=== PATIENT | female | born 1960 | race African-American/Black ===

== ENCOUNTER 2016-06-07 13:05 | Emergency (ER) | payer BC ==
[~2016-06-07 13:05] MED LIST: MAXZIDE PO; PRILO PO; TEKTURNA300 MG PO; [UNRECOGNIZED DRUG - CODE] PO
[2016-06-07 14:21] LABS: BASOPHILS 0.1 %; BASOPHILS ABSOLUTE 0.01 10/3/uL (0.0-0.16); EOSINOPHILS 1.7 %; EOSINOPHILS ABSOLUTE 0.17 10/3/uL (0.0-0.53); ER CBC TAT 0 Hrs 07 Mins; IMMATURE GRANULOCYTES 0.4 %; IMMATURE GRANULOCYTES ABSOLUTE 0.04 10/3/uL (0.0-0.11); LYMPHOCYTES 18.6 %; LYMPHOCYTES ABSOLUTE 1.87 10/3/uL (0.67-4.30); MEAN PLATELET VOLUME 9.5 fL (9.2-13.0); MONOCYTES 8.4 %; MONOCYTES ABSOLUTE 0.85 10/3/uL (0.21-1.20); NEUTROPHILS 70.8 %; NEUTROPHILS ABSOLUTE 7.13 10/3/uL (2.02-8.40); PLATELET COUNT 272 10/3/uL (150-400); RBC DISTRIBUTION WIDTH 16.1 % (12.0-16.0); RED CELL COUNT 5.52 10/6/uL (4.0-5.6); WHITE BLOOD CELLS 10.1 10/3/uL (4.5-10.5)
[2016-06-07 14:22] LABS: HEMATOCRIT 43.1 % (36.0-48.0); HEMOGLOBIN 14.6 g/dL (12.0-16.0); MANUAL DIFF NO %; MEAN CORPUS HGB CONC 33.9 g/dL (32.0-36.0); MEAN CORPUSCULAR HEMOGLOB 26.4 pg (26.0-34.0); MEAN CORPUSCULAR VOLUME 78.1 fL (80-100)
[2016-06-07 14:31] LABS: ASCORBIC ACID (UR NOT ORDER) NEG (NEG); BILIRUBIN, URINE NEGATIVE (NEG); ER URINALYSIS TAT 0 Hrs 23 Mins; KETONE, URINE NEGATIVE (NEG); LEUKOCYTE ESTERASE(NOT OR NEG (NEG); NITRITE (URINE) NEG (NEG); WBC (NOT ORDERED) (RFLEX) 1 (0-5)
[2016-06-07 14:36] LABS: A/G RATIO 0.7 (0.7-1.9); ALBUMIN 3.6 G/DL (3.5-5.0); ALKALINE PHOSPHATASE 164 U/L (45-117); BUN (BLOOD UREA NITROGEN) 11 MG/DL (6-23); CALCIUM, SERUM 9.3 MG/DL (8.5-10.4); CHLORIDE, SERUM 102 MMOL/L (96-112); CO2 (CARBON DIOXIDE) 29 MMOL/L (24-34); CREATININE 1.15 MG/DL (0.55-1.02); GFR AFRICAN AMERICAN 61 ML/MIN (>=60); GFR NON AFRICAN AMERICAN 53 ML/MIN (>=60); GLOBULIN 5.2 G/DL (2.5-4.1); GLUCOSE, SERUM 111 MG/DL (60-99); POTASSIUM, SERUM 3.7 MMOL/L (3.5-5.3); SGOT(AST) 13 U/L (5-40); SGPT(ALT) 17 U/L (5-65); SODIUM, SERUM 138 MMOL/L (135-148); TOTAL BILIRUBIN 0.4 MG/DL (0-1.2); TOTAL PROTEIN 8.8 G/DL (6.0-8.5)
[2016-12-09] MEDS ORDERED: COREG3 PO (09:43)
[2016-12-09] MEDS ORDERED: MAXZIDE PO (09:44)
== END 2016-06-07 16:44 | disposition home or self-care (01) ==
LOC: ER 13:05
PROVIDERS: Hospitalist
DX: R10.9 Unspecified abdominal pain (principal); Z90.710 Acquired absence of both cervix and uterus; Z79.899 Other long term (current) drug therapy
CPT/HCPCS: 80053; 81001; 83690; 85025; 99284; A9270-GY

== ENCOUNTER 2016-06-09 21:41 | Inpatient (IN) | payer BC ==
--- NOTE | ~2016-06-09 | DS ---
Discharge Summary [address] [place]. [address] NAME: LILLIAN SALCEDO : 56 STATUS : DIS IN PAT#: [id number] AGE: 55 ADM/REG DATE : 06/09/16 MR#: [id number] REPORT SERV DATE: 06/19/16 DICTATED BY: OPAL HALEY DATE: 06/19/16 REPORT STATUS : Draft TRANSCRIBED BY: MODL DATE: 06/19/16 ADMISSION DATE: 06/09/2016 DISCHARGE DATE: 06/19/2016 For details of history of present illness, please refer to the history of present illness dictated by Dr. Garvey on 06/09/2016. Also refer to interim discharge summary dictated by nurse practitioner, Arianne Yates, on 06/15/2016. The patient was seen by hospitalist team. She was seen by Dr. Garvey on admission 06/09/2016. Afterwards, she was seen by Dr. Palmer and nurse practitioner, Arianne Yates, until 06/15/2016. Starting 06/15/2016, she was seen by Dr. Jorge until 06/17/2016. I personally saw this patient on the last two days, on 06/18/2016 and 06/19/2016 on the discharge day. DISCHARGE DIAGNOSES: 1. Status post small bowel obstruction, status post exploratory laparotomy and appendectomy, as well as lysis of abdominal wall and pelvic adhesions, status post gastrostomy tube placement. 2. Incidental appendectomy. 3. Hypertension controlled. 4. Morbid obesity. 5. History of gastric bypass surgery in the past. SURGEON: Tye Markham M.D. DIAGNOSTIC STUDIES: CT scan done on 06/09/2016 showed moderate severity partial small bowel obstruction pattern with dilated small bowel up to 4.2 cm and scattered air-fluid levels with transition to normal caliber mid to distal ilium, although the transitional zone is not discretely identified. Status post gastric bypass procedure, cholecystectomy and hysterectomy in the past, basilar atelectasis, mild diverticulosis, no diverticulitis pattern. HISTORY OF PRESENT ILLNESS: Briefly, this patient was admitted by my colleague, Dr. Garvey, 06/09/2016 with abdominal pain, intractable nausea and vomiting. For details, see history of present illness dictated by him on 06/09/2016. For the hospital course, please see note done by Dr. Palmer and the interim discharge summary dictated by nurse practitioner, Arianne Yates, as well as afterwards notes of Dr. Jorge. For the last two days when I saw the patient, the patient was improving. She did not have any problems with eating her diet as well as she was ambulating and having bowel movements. Dr. Markham was following the patient on a daily basis and today, he recommended the patient to be discharged home. She was very comfortable with the G-tube care and he recommended the patient to follow up with him in a week to check on her G-tube. Discharge Summary [address] [place]. [address] NAME: LILLIAN SALCEDO : 56 STATUS : DIS IN PAT#: [id number] AGE: 55 ADM/REG DATE : 06/09/16 MR#: [id number] REPORT SERV DATE: 06/19/16 DICTATED BY: OPAL HALEY DATE: 06/19/16 REPORT STATUS : Draft TRANSCRIBED BY: BLAINE DATE: 06/19/16 Regarding the patient's hypertension, the patient's blood pressure was initially elevated. She was on IV hydralazine because of acute renal failure, which was present in the beginning of admission. The patient's Tekturna and Maxzide were discontinued, and the patient was given intravenous hydralazine. The patient's kidney function is normalized for the last five to six days, and Tekturna is still on hold. We recommended the patient to stop her Tekturna and Maxzide, and the patient was started on hydralazine 25 mg p.o. twice a day and her blood pressure normalized, as well as she was recommended to continue her home isradipine at a dose of 5 mg a day as she takes at home. The patient was recommended to follow up with her primary care provider, Eleanor De Jesus, next week, and she can recheck her kidney function again and she can switch to her home medication regimen with Tekturna if necessary, but I would like to mention that the patient's creatinine was very stable, for example, on 06/15/2016 was 1.15, on 06/16/2016 was 0.97, on 06/18/2016 was 0.85, and on 06/19/2016 today was 0.9. Also, the patient was recommended to take Protonix or over-the- counter omeprazole at 40 mg a day. The patient to stop Maxzide. The patient to stop Tekturna. Continue her Ambien CR at 12.5 as needed for insomnia at bedtime, Tegretol 400 mg daily p.r.n. for jaw pain. The patient was discharged in stable condition. She has a followup appointment with Dr. Markham on 06/26/2016 at 0815 hours and she will follow up with Dr. De Jesus for blood pressure check. I spent 45 minutes on discharge. MG/MODL Opal Haley M.D. / [id number] CC: Genesis Mujica M.D.
--- NOTE | ~2016-06-09 | CN ---
Consultation Report [facility] [address] [place]. [address] NAME: LILLIAN SALCEDO : 56 STATUS : ADM IN [facility]#: [id number] AGE: 55 ADM/REG DATE : 06/09/16 MR#: [id number] REPORT SERV DATE: 06/11/16 DICTATED BY: TYE GODWIN DATE: 06/11/16 REPORT STATUS : Draft TRANSCRIBED BY: MODL DATE: 06/11/16 SURGICAL CONSULTATION DATE OF CONSULTATION: REASON FOR CONSULTATION: Bowel obstruction. HISTORY OF PRESENT ILLNESS: This 55-year-old female was admitted on 06/09/2016. She was presenting to the emergency department after being seen two days prior. She was noted to have left lower quadrant pain and felt to have diverticulitis and discharged home with oral medications. She had progressive abdominal pain and on the day of admission, was noted to have abdominal distention with intractable nausea and vomiting, and she could not keep down her medications. She was admitted and given IV fluids. Her creatinine remains elevated, consistent with dehydration. She had a CT scan that revealed a small-bowel obstruction. The patient states she did not have an NG tube until the day after Gastroenterology consult. She has minimal abdominal pain on exam at this time in the mid abdomen. There is a well- healed upper midline scar from her previous gastric bypass and cholecystectomy approximately 10 years ago. She has also had a hysterectomy with a Pfannenstiel incision. There is no evidence of any hernia. There is no guarding, rebound, or peritoneal signs on exam. The patient has NG tube placed with some bilious drainage, there is no blood in the drainage. The patient denies any hematemesis, coffee-grounds emesis, change in bowel or bladder habits, change in the caliber of her stools, bright red blood per rectum, or melena. She has had relief of the nausea and vomiting with NG tube decompression. She has no previous history of abdominal symptoms like this in the past. She denies any recent travel or ill family members. She has no well water exposure. PAST MEDICAL HISTORY: Hypertension and history of diverticulitis. PAST SURGICAL HISTORY: As above. SOCIAL HISTORY: The patient is . She denies tobacco or illicit drug usage. She uses alcohol socially. ALLERGIES: NO KNOWN DRUG OR LATEX ALLERGIES. MEDICATIONS: Please see hospital chart. FAMILY HISTORY: Negative for colon cancer or polyps. REVIEW OF SYSTEMS: No headache, blurred vision, dizziness, chest pain, shortness of breath, cough, dyspnea on exertion, syncope, palpitations, jaundice, itching, bright red blood per rectum, or melena. LABORATORY DATA: White blood cell count today is 7.1, H and H 13.2 and 39. Her creatinine Consultation Report [address] [place]. [address] NAME: LILLIAN SALCEDO : 56 STATUS : ADM IN [facility]#: [id number] AGE: 55 ADM/REG DATE : 06/09/16 MR#: [id number] REPORT SERV DATE: 06/11/16 DICTATED BY: TYE GODWIN DATE: 06/11/16 REPORT STATUS : Draft TRANSCRIBED BY: BLAINE DATE: 06/11/16 is elevated at 1.51, potassium is 4.5. Imaging obtained on 06/09: CT scan reveals moderate severity partial small-bowel obstruction pattern, up to 4.2 cm in diameter with scattered air-fluid levels with a transition to normal caliber in the mid to distal ileum, although the transition zone was not discretely identified. There was also atelectasis. There was no evidence of any free air, and mild diverticulosis of the descending and proximal sigmoid colon without diverticulitis. She has KUBs pending after NG tube placement. ASSESSMENT: 1. Partial small-bowel obstruction. 2. Resolving nausea and vomiting after NG tube decompression. 3. Hypertension. 4. Dehydration with elevated creatinine. PLAN: We will review the patient's IV supplementation and review the CT with Radiology after repeat imaging is done with NG tube decompression. There is no acute indication for surgical intervention at this time on the abdominal exam. In addition, the patient has no evidence of any tachycardia, fever, or elevated white blood cell count. We will consider Gastrografin small-bowel follow-through in a.m. after review of images. The patient was informed that if she is to have any signs of incarceration or strangulation or complications such as perforation or bleeding that surgery would be indicated. We will continue conservative therapy including IV fluids, NG tube decompression, serial physical exam and imaging for 48 hours if there are no complications before considering surgical intervention at this time. WALTER/BLAINE Tye Godwin M.D. / [id number] CC: Genesis Mcintosh M.D.
--- NOTE | ~2016-06-09 | HP ---
History And Physical [address] [facility] [place]. [address] NAME: LILLIAN SALCEDO : 56 STATUS : ADM IN [facility]#: [id number] AGE: 55 ADM/REG DATE : 06/09/16 MR#: [id number] REPORT SERV DATE: 06/10/16 DICTATED BY: JEFFERY PORTILLO DATE: 06/10/16 REPORT STATUS : Draft TRANSCRIBED BY: MODL DATE: 06/10/16 DATE OF ADMISSION: 06/09/2016 CHIEF COMPLAINT: Abdominal pain, intractable nausea and vomiting. HISTORY OF PRESENT ILLNESS: This is a 55-year-old lady with a history of diverticulitis in the past, essential hypertension, history of hiatal hernia, history of hysterectomy, cholecystectomy, and gastric bypass surgeries in the past, who presented to the emergency room at [facility] with the above-mentioned complaints a few days. She was seen in the ER, evaluated, and discharged home on oral medication, but her symptoms actually continued to get worse and she decided to come back to the emergency room to be evaluated. In the emergency room today, she had a CT scan of her abdomen and pelvis performed, which showed moderately severe partial small bowel obstruction in the distally ileum. She also had intractable nausea and vomiting here in the ER requiring intravenous Zofran and Phenergan, and had to have intravenous hydration due to the ongoing symptoms of nausea and vomiting. Hospitalist Service is asked to admit her for further evaluation and treatment. At the time of my evaluation, Ms. Aisha Glaser did not have any chest pain, palpitations, or orthopnea. She had no cough, hemoptysis, night sweats, or weight loss. She denied any recent fevers or chills. She did have nausea and vomiting as mentioned above, which is ongoing. She says the emesis is basically bilious. No history of recent hematemesis, hematochezia, or hematuria. No other history of recent travel or exposures other than those mentioned above. PAST MEDICAL HISTORY: Significant for history of essential hypertension, history of diverticulitis in the past. She has history of hiatal hernia and gastric bypass surgery as well. SOCIAL HISTORY: She denies alcohol use, tobacco use, or recreational drug use. FAMILY HISTORY: Noncontributory. MEDICATIONS: Her medications at home were reviewed by me in the chart today and reordered by me. REVIEW OF SYSTEMS: As in history of present illness. All other systems reviewed in detail and are quite unremarkable. PHYSICAL EXAMINATION: GENERAL: This is a pleasant 55-year-old, not in any acute distress. HEENT: Head is atraumatic, normocephalic. She is alert, awake, oriented to time, place, and person. Her pupils are equal, reacting to light and accommodating. External ocular muscles are intact. Membranes are moist and pink. Sclerae are nonicteric. History And Physical [address] [address] NAME: LILLIAN SALCEDO : 56 STATUS : ADM IN [facility]#: [id number] AGE: 55 ADM/REG DATE : 06/09/16 MR#: [id number] REPORT SERV DATE: 06/10/16 DICTATED BY: JEFFERY PORTILLO DATE: 06/10/16 REPORT STATUS : Draft TRANSCRIBED BY: MODL DATE: 06/10/16 NECK: Supple with no jugular venous distention, lymphadenopathy, or thyromegaly. LUNGS: Clear to auscultation with no wheezes, rubs, or crackles. HEART: Heart sounds were regular with no murmurs, rubs, or gallops. ABDOMEN: Soft. There is some tenderness in the right upper quadrant, otherwise without any guarding or rigidity. Bowel sounds are present. EXTREMITIES: Showed no cyanosis, clubbing, or edema. NEUROLOGIC: Grossly intact. No focal sensory or motor deficits. Higher functions appeared intact. She was able to move all four extremities. VITAL SIGNS: Her vital signs today showed a temperature of 98.5, pulse 87, respirations 16 a minute, blood pressure was 142/90, oxygen saturations were 98% breathing 2 L of oxygen via nasal cannula. LABORATORY DATA: Reviewed on the Eqvilibria system showed a sodium of 136, potassium 3.8, chloride 95, and CO2 of 32. BUN was 17 with a creatinine of 1.54, which is slightly up from her baseline of 1.1. Glucose was 126 today. Her alkaline phosphatase was 154. ALT and AST were within normal limits and lipase was 105. CBC showed a normal white blood cell count and normal hemoglobin, hematocrit, and platelet count. Her MCV was 77.4. Urinalysis showed no gross abnormality. This was done on 06/07/2016. Films of the CT scan of the abdomen and pelvis done today were reviewed by me on the PACS today and official radiology comments were also reviewed. There is moderately severe partial small bowel obstruction of the distal ileum. Please see report for details. EKG showed normal sinus rhythm at a rate of [address]-T changes. IMPRESSION: 1. Abdominal pain. 2. Intractable nausea and vomiting. 3. Moderately severe partial small bowel obstruction. 4. Essential hypertension. 5. History of diverticulitis. 6. Hiatal hernia. PLAN: We will admit Ms. Aisha Glaser to the [facility] surgery telemetry unit. Monitor her closely. We will keep her n.p.o. for bowel rest, provide her intravenous Zofran and Phenergan for symptoms of nausea and vomiting. We will start her on IV fluids for volume replacement, establish pain control with Dilaudid as well. We will go ahead and consult Dr. Boo in the morning to see, evaluate her, and offer recommendations. Meanwhile, she will be placed on unfractionated heparin for DVT prophylaxis while here. I have discussed the above plans with the patient and her . Questions were answered and they are agreeable to the above recommendations. Hospitalist Service will be following her during her stay. /BLAINE Jeffery Portillo M.D. History And Physical [address] [address] NAME: LILLIAN SALCEDO CAROLYN : 56 STATUS : ADM IN [facility]#: [id number] AGE: 55 ADM/REG DATE : 06/09/16 MR#: [id number] REPORT SERV DATE: 06/10/16 DICTATED BY: JEFFERY PORTILLO DATE: 06/10/16 REPORT STATUS : Draft TRANSCRIBED BY: BLAINE DATE: 06/10/16 / [id number] CC: Genesis Hawkins M.D.
--- NOTE | ~2016-06-09 | CN ---
Consultation Report [facility] [address] [place]. [address] NAME: LILLIAN SALCEDO : 56 STATUS : ADM IN [facility]#: [id number] AGE: 55 ADM/REG DATE : 06/09/16 MR#: [id number] REPORT SERV DATE: 06/10/16 DICTATED BY: YANNICK LAUGHLIN DATE: 06/10/16 REPORT STATUS : Draft TRANSCRIBED BY: MODL DATE: 06/10/16 GI CONSULTATION DATE OF CONSULTATION: 06/10/2016 REASON FOR CONSULTATION: Evaluation and management of partial small-bowel obstruction. HISTORY OF PRESENT ILLNESS: Ms. Aisha Glaser is a 55-year-old female patient, known to Dr. Armani Boo in the outpatient setting, who presented to [facility] on 06/09 with a chief complaint of abdominal pain, intractable nausea with vomiting. She has a history of a gastric bypass in what she states was 1996, who had presented to [facility] on 06/07 with the similar complaints and was sent home with antiemetics. She returned on 06/09 secondary to intractable nausea and vomiting, stating that she has not eaten anything in four to five days. CT scan of the abdomen and pelvis showed moderate severity partial small-bowel obstruction pattern with dilated small bowel up to 4.2 cm and scattered air-fluid levels, thus prompting her admission. She has been n.p.o. She has not had an NG tube placed. She states that right now, her nausea and vomiting have resolved. She is not passing much flatus. She states she has not had a bowel movement since 06/04. She tells me she has never had a bowel obstruction before. She is uncomfortable and complains of abdominal pain on the left side with no rebound, no guarding, no peritoneal signs being elicited on exam. She denies any associated hematemesis or coffee-ground emesis. She has not had any melena or hematochezia. No fever, chills, chest pain, or shortness of breath. She describes her emesis as bilious type material. I have discussed with her we will repeat imaging and if appears worsened pattern of her bowel obstruction, we will place an NG tube and have Surgery see her. PAST MEDICAL HISTORY: Positive for hypertension, diverticulitis, diverticulosis, obesity, status post gastric bypass. PAST SURGICAL HISTORY: Gastric bypass in 1996. SOCIAL HISTORY: Lives independently. Denies alcohol, tobacco, or illicits. FAMILY HISTORY: Noncontributory from a GI standpoint. ALLERGIES: TO NOTHING. HOME MEDICATIONS: Tekturna, Tegretol, DynaCirc, Maxzide, and Ambien. REVIEW OF SYSTEMS: A 10-point review of systems obtained with pertinent positives addressed in the history of present illness. PERTINENT LABORATORY DATA: Sodium is 136, potassium is 3.2, BUN is 18, creatinine is 1.35. Consultation Report [id number] [place]. [address] NAME: LILLIAN SALCEDO : 56 STATUS : ADM IN [facility]#: [id number] AGE: 55 ADM/REG DATE : 06/09/16 MR#: [id number] REPORT SERV DATE: 06/10/16 DICTATED BY: YANNICK LAUGHLIN DATE: 06/10/16 REPORT STATUS : Draft TRANSCRIBED BY: MODL DATE: 06/10/16 White count is 5.7, hemoglobin is 13.5, hematocrit is 41.1, platelet count is 237. PHYSICAL EXAMINATION: VITAL SIGNS: Temperature is 97.9, pulse 71, respirations 16, and blood pressure is 125/77. NEURO: Reveals an alert female, resting in bed with no obvious focal deficits. GENERAL: Cooperative, in no apparent distress. Awake and oriented x3. HEAD, EARS, EYES, NOSE, AND THROAT: Anicteric. Pupils equal, round, reactive to light and accommodation. Normocephalic and atraumatic. NECK: No JVD. No palpable nodes. LUNGS: Clear anteriorly with normal respiratory effort exhibited. Equal expansion. Diminished bilaterally in the bases. CARDIOVASCULAR SYSTEM: Regular rate and rhythm. S1 and S2. No murmurs, rubs, gallops, S3, or S4 appreciated. ABDOMEN: Soft, obese. Left lower quadrant and left upper quadrant tenderness mildly to palpation. Hypoactive bowel sounds. EXTREMITIES: No edema. Normal distal pulses. SKIN: Warm, dry, and intact. ASSESSMENT: 1. Partial small-bowel obstruction. 2. Abdominal pain. 3. Nausea and vomiting, #2 and #3 are secondary to #1. 4. History of gastric bypass. PLAN: 1. Repeat imaging. 2. Dulcolax suppositories twice a day. 3. Questionable Gastrografin small-bowel follow-through based on above imaging. 4. Increase activity. 5. May need NG tube and surgical consultation. We will follow. ANNA/BLAINE [place] BRISA Fields / [id number] CC: Genesis Hawkins M.D.
--- NOTE | ~2016-06-09 | IDS ---
Interim Discharge Summary [facility] [address] [place]. [address] NAME: LILLIAN SALCEDO : 56 STATUS : ADM IN [facility]#: [id number] AGE: 55 ADM/REG DATE : 06/09/16 MR#: [id number] REPORT SERV DATE: 06/15/16 DICTATED BY: THIAGO LEVI DATE: 06/15/16 REPORT STATUS : Draft TRANSCRIBED BY: MODL DATE: 06/15/16 ADMISSION DATE: 06/09/2016 DISCHARGE DATE: The patient was admitted to the Hospitalist Service. CONSULTANTS: 1. Stef Fields, nurse practitioner, for Dr. Boo, Gastroenterology. 2. Dr. Tye Love, General Surgery. CURRENT DIAGNOSES: 1. Small-bowel obstruction status post exploratory laparotomy with lysis of adhesions, incidental appendectomy, and gastrostomy tube placement. 2. Hypertension. 3. Acute kidney injury. 4. Morbid obesity with history of gastric bypass. PROCEDURES: On 06/13/2016, exploratory laparotomy, lysis of abdominal wall and pelvic adhesions, incidental appendectomy, and 18-Cuban gastrostomy tube placement per Dr. Love. IMAGIN. On 06/09/2016, CT of abdomen and pelvis without contrast revealed moderate severity partial small-bowel obstruction pattern with dilated small bowel up to 4.2 cm and scattered air-fluid levels with transition to normal caliber, [id number] ileum, although the transition zone is not discretely identified; status post gastric bypass, cholecystectomy, and hysterectomy; basilar atelectasis, left greater than right, and small left pleural effusion; trace pelvic ascites; mild diverticulosis in descending and proximal sigmoid colon. No diverticulitis pattern. 2. Multiple KUBs, last on being on 06/12/2016, which revealed dilated small bowel in the left upper quadrant consistent with partial small-bowel obstruction. 3. Small bowel followup on 06/12/2016, small bowel follow-through, revealed prominently dilated loops of proximal and mid jejunum. Findings compatible with high-grade partial small-bowel obstruction; surgical narrowing of the proximal gastric lumen compatible with history of bariatric surgery and a small hiatal hernia. LABORATORY STUDIES: 1. On 06/14/2016, CBC revealed a white count of 8.9, hemoglobin 12.4, hematocrit 36.8, platelets 288,000. 2. On 06/14/2016, basic metabolic panel revealed a sodium of 142, potassium 4.1, chloride 108, CO2 of 24, BUN 9, creatinine 1.16, GFR 61, glucose 127, calcium 7.6, magnesium 1.7, and phosphorus 3.4. 3. Hemoglobin A1c is 6.2. 4. Urinalysis on 06/09/2016 in the emergency room was negative except for a pH of 9 and rare bacteria on the microscopic. Interim Discharge Summary [address] [address] NAME: LILLIAN SALCEDO : 56 STATUS : ADM IN [facility]#: [id number] AGE: 55 ADM/REG DATE : 06/09/16 MR#: [id number] REPORT SERV DATE: 06/15/16 DICTATED BY: THIAGO LEVI DATE: 06/15/16 REPORT STATUS : Draft TRANSCRIBED BY: BLAINE DATE: 06/15/16 HISTORY OF PRESENT ILLNESS: For complete history, please refer back to Dr. Jeffery Garvey's H and P and on date of admission. Briefly, Ms. Aisha Glaser is a very pleasant, morbidly obese female, who presented to the emergency room with complaints of abdominal pain with intractable nausea and vomiting. In the emergency room, she was noted to have a small-bowel obstruction per CT scan, therefore, she was admitted to the Hospitalist Service for further evaluation and treatment. HOSPITAL COURSE: Ms. Aisha Glaser was admitted to a med/surg telemetry bed. A GI consult was placed to Dr. Boo. She was placed n.p.o. and given D5 and a half normal saline at 125 mL/h. She was provided with heparin 5000 units subcu q.8 hours for DVT prophylaxis. She was also given p.r.n. antiemetics and p.r.n. IV pain control. She was seen in consultation by Stef Fields on 06/10/2016. Serial imaging was ordered with Bhumi. I initially saw Ms. Aisha Glaser on the . Her abdominal pain was controlled with pain medications. She was n.p.o. and receiving IV fluids. She had no nausea or vomiting since her admission. She was hypokalemic on this date, therefore, her IV fluids were changed to D5 and a half normal saline plus 40 mEq of potassium at 125 mL an hour x1 L. On 06/11/2016, she had not improved significantly, therefore, a consult was placed to General Surgery, and on the afternoon of the , she was seen in consultation by Dr. Tye Love. On this date, she did have an NG tube placed on 2 separate occasions. Radiology recommended advancing the NG tube several centimeters, but the patient refused to have this done. On 06/12/2016, Dr. Love ordered an upper GI with Gastrografin and small bowel follow- through. She remained n.p.o. after the procedure. On the 06/13/2016, Ms. Aisha Glaser went to the operating room for exploratory lap. On 06/13/2016, Ms. Aisha Glaser was doing well. Her vital signs were stable. She was up in the ryan ambulatory with assistance. She was continuing to receive IV fluids D5 LR at 125 mL/h. Her Tekturna was discontinued on this day. It is recommended to start amlodipine when she is able to take p.o. medications. Currently, disposition for Ms. Aisha Glaser is to go home possibly with home health care. LUCRECIA/BLAINE TREE SmallP-BC / [id number] CC: Genesis Sams M.D.
--- NOTE | ~2016-06-09 | OP ---
Record Of Operation [facility] [address] [facility] [place]. [address] NAME: LILLIAN SALCEDO : 56 STATUS : ADM IN PAT#: [id number] AGE: 55 ADM/REG DATE : 06/09/16 MR#: [id number] REPORT SERV DATE: 06/13/16 DICTATED BY: PÉREZ GODWIN DATE: 06/13/16 REPORT STATUS : Draft TRANSCRIBED BY: MODL DATE: 06/13/16 DATE OF PROCEDURE: 06/13/2016 PREOPERATIVE DIAGNOSES: 1. High-grade partial or complete small bowel obstruction with failure of conservative medical therapy. 2. Obesity. 3. History of gastric bypass with cholecystectomy by laparotomy. 4. Inability to pass NG tube secondary to previous gastric bypass procedure. POSTOPERATIVE DIAGNOSES: 1. High-grade partial or complete small bowel obstruction with failure of conservative medical therapy. 2. Obesity. 3. History of gastric bypass with cholecystectomy by laparotomy. 4. Inability to pass NG tube secondary to previous gastric bypass procedure. PROCEDURE: 1. Exploratory laparotomy. 2. Lysis of abdominal wall and pelvic adhesions. 3. An 18-Tristanian gastrostomy tube. 4. Incidental appendectomy. ANESTHESIA: General. SURGEON: Pérez Godwin M.D. FIBERGLASS FINISHER: Guero. COMPLICATIONS: None. DRAINS: None. ESTIMATED BLOOD LOSS: 50 mL. INDICATIONS: This is a pleasant, 55-year-old female, who has been observed with attempted NG tube decompression with a suboptimal NG tube secondary to her previous gastric bypass. She had no flatus greater than 48 hours after my initial consultation with persistent minimal-to moderate distention and failure of contrast to reach the colon and extended period of time consistent with persistent bowel obstruction. The risks, benefits, and alternatives of the procedure were discussed with the patient. She wishes to proceed. OPERATIVE TECHNIQUE: The patient was brought to the operating room and placed on the table in supine position. She had preoperative IV antibiotics. She had sequential hose in place. She voided prior to the procedure. She underwent general endotracheal anesthesia and was prepped and draped in sterile fashion. A time-out was completed. A 10 blade knife was used Record Of Operation [facility] [address] [facility] [place]. [address] NAME: LILLIAN SALCEDO : 56 STATUS : ADM IN PAT#: [id number] AGE: 55 ADM/REG DATE : 06/09/16 MR#: [id number] REPORT SERV DATE: 06/13/16 DICTATED BY: PÉREZ GODWIN DATE: 06/13/16 REPORT STATUS : Draft TRANSCRIBED BY: MODAnna DATE: 06/13/16 to excise her old upper midline scar and the scar was discarded. Abdominal wall incision was extended below the umbilicus on the left side. The abdomen was then entered in this area and there were no adhesions. The patient was noted to have marked dense adhesions of the small intestine to the abdominal wall from the umbilicus to the xiphoid process. These were taken down carefully using scissors under direct visualization. After adhesiolysis of the anterior abdominal wall was completed, the patient was noted to have some interloop small bowel adhesions and adhesions of the small bowel to the pelvis and these were all mobilized and taken down using the scissors. The patient's appendix was noted to be in S figuration on the right lower quadrant as well without acute inflammation but with the above findings was eventually removed. The patient had two segments of small bowel with significant interloop adhesions. One of the adhesions was adherent to the retroperitoneum with a very tight near-complete obstruction of the mid jejunum. This band was lysed with immediate perfusion of the bowel that was dusky but not gangrenous. After the adhesiolysis, the air and GI contents was immediately noted to pass distally. The 2nd more proximal area of interloop adhesion was then lysed completely. There was one segment of bowel that had serosal tear that was lysed to the anterior portion of the abdominal wall and it was approximately 1 cm in length and 3 mm in width and it was oversewn with four interrupted seromuscular 3-0 Vicryl sutures. There was no tension and the bowel was viable. At this point, the ligament of Treitz was identified and the bowel was completely examined all the way to the terminal ileum. There was no evidence of any other adhesions or obstruction. The appendix was then identified and mobilized using electrocautery. The mesenteric vessels were clamped, divided, and ligated. The appendix was divided with a 75 mm stapler. The staple line was noted to be oversewn with interrupted 3-0 Lembert style sutures. The biggest concern was that the patient could not be adequately decompressed with an NG tube. Her stomach was still markedly dilated. There was a significant amount of adhesions of the stomach to the liver and to the diaphragm and mobilization of the distal half of the stomach was completed. The patient had what appeared to be staple line that was possibly palpable but was not mobilized for fear of injury. In light of the inability to pass the NG tube effectively into the stomach for decompression, the decision was made to perform a gastrostomy. A stab incision was made in the left upper quadrant and the G-tube was brought into the abdomen with an Adson clamp from the skin into the abdomen. It was an 18-Tristanian tube. A two layer pursestring 0 silk suture was then placed on the stomach that had been previously prepared and mobilized to the anterior abdominal wall without tension at the exit site. The gastrotomy was made and the bowel was then aspirated. The dilated small bowel contents from the mid small bowel was decompressed from distal to proximal with fingers under pressure into the stomach so that it could be aspirated. Approximately additional 1000 mL GI content was aspirated. This decompressed the small bowel, which due to the chronicity remained thickened and edematous. It was all viable. At this point, the G-tube was secured to the under surface of the peritoneal with interrupted 3-0 Vicryl sutures and the bulb was inflated with water and the G-tube was brought to the anterior abdominal wall. There was no tension on the stomach and it was sealed. The button of the G-tube was secured to the skin with nylon sutures. At this point, the entire abdomen was thoroughly irrigated, and there was no evidence of any other visual abnormalities. The bowel was returned to the abdomen. The omentum was markedly retracted from probably previous surgery. At this juncture, the fascia was reapproximated using a #1 looped PDS suture from above and below and they were tied together above the umbilicus. The wound was then thoroughly irrigated and a quarter-inch [place] drain was placed and the skin edges were reapproximated using Record Of Operation [facility] [id number] [facility] [place]. [address] NAME: LILLIAN SALCEDO : 56 STATUS : ADM IN [facility]#: [id number] AGE: 55 ADM/REG DATE : 06/09/16 MR#: [id number] REPORT SERV DATE: 06/13/16 DICTATED BY: PÉREZ GODWIN DATE: 06/13/16 REPORT STATUS : Draft TRANSCRIBED BY: MODL DATE: 06/13/16 vidal. Dry dressings were applied. She was extubated and taken to the recovery room in stable condition. All sponge and needle counts reported correct. /BLAINE Pérez Godwin M.D. / [id number] CC: Genesis Mcintosh M.D.
[2016-06-09 22:09] LABS: BASOPHILS 0.1 %; BASOPHILS ABSOLUTE 0.01 10/3/uL (0.0-0.16); EOSINOPHILS 1.4 %; HEMATOCRIT 42.1 % (36.0-48.0); HEMOGLOBIN 14.3 g/dL (12.0-16.0); IMMATURE GRANULOCYTES 0.6 %; IMMATURE GRANULOCYTES ABSOLUTE 0.04 10/3/uL (0.0-0.11); LYMPHOCYTES 21.3 %; LYMPHOCYTES ABSOLUTE 1.52 10/3/uL (0.67-4.30); MEAN CORPUSCULAR HEMOGLOB 26.3 pg (26.0-34.0); MEAN CORPUSCULAR VOLUME 77.4 fL (80-100); MEAN PLATELET VOLUME 9.6 fL (9.2-13.0); MONOCYTES 17.4 %; MONOCYTES ABSOLUTE 1.24 10/3/uL (0.21-1.20); NEUTROPHILS 59.2 %; NEUTROPHILS ABSOLUTE 4.21 10/3/uL (2.02-8.40); PLATELET COUNT 264 10/3/uL (150-400); RBC DISTRIBUTION WIDTH 15.7 % (12.0-16.0); RED CELL COUNT 5.44 10/6/uL (4.0-5.6); WHITE BLOOD CELLS 7.1 10/3/uL (4.5-10.5)
[2016-06-09 22:12] LABS: MANUAL DIFF NO %
[2016-06-09 22:24] LABS: A/G RATIO 0.8 (0.7-1.9); ALBUMIN 3.6 G/DL (3.5-5.0); ALKALINE PHOSPHATASE 154 U/L (45-117); CALCIUM, SERUM 8.9 MG/DL (8.5-10.4); CHLORIDE, SERUM 95 MMOL/L (96-112); CO2 (CARBON DIOXIDE) 32 MMOL/L (24-34); CREATININE 1.54 MG/DL (0.55-1.02); GFR AFRICAN AMERICAN 43 ML/MIN (>=60); GFR NON AFRICAN AMERICAN 37 ML/MIN (>=60); GLOBULIN 4.8 G/DL (2.5-4.1); GLUCOSE, SERUM 126 MG/DL (60-99); POTASSIUM, SERUM 3.8 MMOL/L (3.5-5.3); SGOT(AST) 17 U/L (5-40); SGPT(ALT) 24 U/L (5-65); SODIUM, SERUM 136 MMOL/L (135-148); TOTAL BILIRUBIN 0.5 MG/DL (0-1.2); TOTAL PROTEIN 8.4 G/DL (6.0-8.5)
[2016-06-09 22:25] LABS: BUN (BLOOD UREA NITROGEN) 17 MG/DL (6-23)
[2016-06-09] MEDS ORDERED: MAXZIDE PO (23:50)
[2016-06-09] MEDS ORDERED: [UNRECOGNIZED DRUG - CODE] PO (23:50)
[2016-06-09] MEDS ORDERED: AMBIEN CR12.5 MG PO (23:50)
[2016-06-09] MEDS ORDERED: TEKTURNA300 MG PO (23:50)
[2016-06-09] MEDS ORDERED: TEG200 PO (23:51)
[2016-06-10 07:03] LABS: BUN (BLOOD UREA NITROGEN) 18 MG/DL (6-23); CALCIUM, SERUM 8.3 MG/DL (8.5-10.4); CHLORIDE, SERUM 99 MMOL/L (96-112); CO2 (CARBON DIOXIDE) 28 MMOL/L (24-34); CREATININE 1.35 MG/DL (0.55-1.02); GFR AFRICAN AMERICAN 50 ML/MIN (>=60); GFR NON AFRICAN AMERICAN 43 ML/MIN (>=60); GLUCOSE, SERUM 167 MG/DL (60-99); PHOSPHORUS, SERUM 3.3 MG/DL (2.5-4.5); POTASSIUM, SERUM 3.2 MMOL/L (3.5-5.3); SODIUM, SERUM 136 MMOL/L (135-148)
[2016-06-10 07:09] LABS: BASOPHILS 1.1 %; BASOPHILS ABSOLUTE 0.06 10/3/uL (0.0-0.16); EOSINOPHILS 1.1 %; EOSINOPHILS ABSOLUTE 0.06 10/3/uL (0.0-0.53); HEMATOCRIT 41.1 % (36.0-48.0); HEMOGLOBIN 13.8 g/dL (12.0-16.0); IMMATURE GRANULOCYTES 1.6 %; IMMATURE GRANULOCYTES ABSOLUTE 0.09 10/3/uL (0.0-0.11); LYMPHOCYTES 21.9 %; LYMPHOCYTES ABSOLUTE 1.25 10/3/uL (0.67-4.30); MEAN CORPUS HGB CONC 33.6 g/dL (32.0-36.0); MEAN CORPUSCULAR HEMOGLOB 26.2 pg (26.0-34.0); MEAN CORPUSCULAR VOLUME 78.1 fL (80-100); MEAN PLATELET VOLUME 10.3 fL (9.2-13.0); MONOCYTES 16.8 %; MONOCYTES ABSOLUTE 0.96 10/3/uL (0.21-1.20); NEUTROPHILS 57.5 %; NEUTROPHILS ABSOLUTE 3.29 10/3/uL (2.02-8.40); PLATELET COUNT 237 10/3/uL (150-400); RBC DISTRIBUTION WIDTH 16.1 % (12.0-16.0); RED CELL COUNT 5.26 10/6/uL (4.0-5.6); WHITE BLOOD CELLS 5.7 10/3/uL (4.5-10.5)
[2016-06-10 07:10] LABS: MANUAL DIFF NO %
[2016-06-11 05:04] LABS: BASOPHILS 0.1 %; BASOPHILS ABSOLUTE 0.01 10/3/uL (0.0-0.16); EOSINOPHILS 0.6 %; EOSINOPHILS ABSOLUTE 0.04 10/3/uL (0.0-0.53); HEMOGLOBIN 13.2 g/dL (12.0-16.0); IMMATURE GRANULOCYTES 0.3 %; IMMATURE GRANULOCYTES ABSOLUTE 0.02 10/3/uL (0.0-0.11); LYMPHOCYTES 13.2 %; LYMPHOCYTES ABSOLUTE 0.94 10/3/uL (0.67-4.30); MEAN CORPUS HGB CONC 33.8 g/dL (32.0-36.0); MEAN CORPUSCULAR HEMOGLOB 26.3 pg (26.0-34.0); MEAN CORPUSCULAR VOLUME 77.8 fL (80-100); MEAN PLATELET VOLUME 9.4 fL (9.2-13.0); MONOCYTES 12.9 %; MONOCYTES ABSOLUTE 0.92 10/3/uL (0.21-1.20); NEUTROPHILS 72.9 %; NEUTROPHILS ABSOLUTE 5.18 10/3/uL (2.02-8.40); PLATELET COUNT 260 10/3/uL (150-400); RBC DISTRIBUTION WIDTH 15.7 % (12.0-16.0); RED CELL COUNT 5.01 10/6/uL (4.0-5.6); WHITE BLOOD CELLS 7.1 10/3/uL (4.5-10.5)
[2016-06-11 05:05] LABS: MANUAL DIFF NO %
[2016-06-11 05:18] LABS: A/G RATIO 0.7 (0.7-1.9); ALBUMIN 3.3 G/DL (3.5-5.0); BUN (BLOOD UREA NITROGEN) 18 MG/DL (6-23); CALCIUM, SERUM 9.1 MG/DL (8.5-10.4); CHLORIDE, SERUM 98 MMOL/L (96-112); CO2 (CARBON DIOXIDE) 30 MMOL/L (24-34); CREATININE 1.51 MG/DL (0.55-1.02); GFR AFRICAN AMERICAN 44 ML/MIN (>=60); GFR NON AFRICAN AMERICAN 38 ML/MIN (>=60); GLOBULIN 4.8 G/DL (2.5-4.1); GLUCOSE, SERUM 190 MG/DL (60-99); SGOT(AST) 13 U/L (5-40); SGPT(ALT) 22 U/L (5-65); SODIUM, SERUM 135 MMOL/L (135-148); TOTAL BILIRUBIN 0.4 MG/DL (0-1.2); TOTAL PROTEIN 8.1 G/DL (6.0-8.5)
[2016-06-11 05:21] LABS: ALKALINE PHOSPHATASE 142 U/L (45-117); POTASSIUM, SERUM 4.5 MMOL/L (3.5-5.3)
[2016-06-12 05:33] LABS: BASOPHILS 0.2 %; BASOPHILS ABSOLUTE 0.01 10/3/uL (0.0-0.16); EOSINOPHILS 0.5 %; EOSINOPHILS ABSOLUTE 0.03 10/3/uL (0.0-0.53); HEMATOCRIT 36.4 % (36.0-48.0); HEMOGLOBIN 12.2 g/dL (12.0-16.0); IMMATURE GRANULOCYTES 0.2 %; IMMATURE GRANULOCYTES ABSOLUTE 0.01 10/3/uL (0.0-0.11); LYMPHOCYTES 20.8 %; LYMPHOCYTES ABSOLUTE 1.18 10/3/uL (0.67-4.30); MEAN CORPUS HGB CONC 33.5 g/dL (32.0-36.0); MEAN CORPUSCULAR VOLUME 77.6 fL (80-100); MEAN PLATELET VOLUME 9.8 fL (9.2-13.0); MONOCYTES 19.4 %; NEUTROPHILS 58.9 %; NEUTROPHILS ABSOLUTE 3.33 10/3/uL (2.02-8.40); PLATELET COUNT 273 10/3/uL (150-400); RBC DISTRIBUTION WIDTH 15.7 % (12.0-16.0); RED CELL COUNT 4.69 10/6/uL (4.0-5.6); WHITE BLOOD CELLS 5.7 10/3/uL (4.5-10.5)
[2016-06-12 05:36] LABS: MANUAL DIFF NO %
[2016-06-12 05:49] LABS: CALCIUM, SERUM 8.4 MG/DL (8.5-10.4); CHLORIDE, SERUM 103 MMOL/L (96-112); CO2 (CARBON DIOXIDE) 29 MMOL/L (24-34); CREATININE 1.08 MG/DL (0.55-1.02); GFR AFRICAN AMERICAN 66 ML/MIN (>=60); GFR NON AFRICAN AMERICAN 57 ML/MIN (>=60); POTASSIUM, SERUM 3.6 MMOL/L (3.5-5.3)
[2016-06-12 05:54] LABS: BUN (BLOOD UREA NITROGEN) 12 MG/DL (6-23); GLUCOSE, SERUM 119 MG/DL (60-99); PHOSPHORUS, SERUM 2.3 MG/DL (2.5-4.5); SODIUM, SERUM 142 MMOL/L (135-148)
[2016-06-13 06:55] LABS: BASOPHILS 0.3 %; BASOPHILS ABSOLUTE 0.02 10/3/uL (0.0-0.16); EOSINOPHILS 1.1 %; EOSINOPHILS ABSOLUTE 0.07 10/3/uL (0.0-0.53); HEMOGLOBIN 11.8 g/dL (12.0-16.0); IMMATURE GRANULOCYTES 0.3 %; IMMATURE GRANULOCYTES ABSOLUTE 0.02 10/3/uL (0.0-0.11); LYMPHOCYTES 22.2 %; LYMPHOCYTES ABSOLUTE 1.43 10/3/uL (0.67-4.30); MEAN CORPUS HGB CONC 32.8 g/dL (32.0-36.0); MEAN CORPUSCULAR HEMOGLOB 25.5 pg (26.0-34.0); MEAN CORPUSCULAR VOLUME 77.8 fL (80-100); MEAN PLATELET VOLUME 9.5 fL (9.2-13.0); MONOCYTES 18.9 %; MONOCYTES ABSOLUTE 1.22 10/3/uL (0.21-1.20); NEUTROPHILS 57.2 %; NEUTROPHILS ABSOLUTE 3.68 10/3/uL (2.02-8.40); PLATELET COUNT 262 10/3/uL (150-400); RBC DISTRIBUTION WIDTH 15.9 % (12.0-16.0); RED CELL COUNT 4.63 10/6/uL (4.0-5.6); WHITE BLOOD CELLS 6.4 10/3/uL (4.5-10.5)
[2016-06-13 06:56] LABS: MANUAL DIFF NO %
[2016-06-13 07:09] LABS: BUN (BLOOD UREA NITROGEN) 11 MG/DL (6-23); CALCIUM, SERUM 8.7 MG/DL (8.5-10.4); CHLORIDE, SERUM 106 MMOL/L (96-112); CO2 (CARBON DIOXIDE) 31 MMOL/L (24-34); CREATININE 1.12 MG/DL (0.55-1.02); GFR AFRICAN AMERICAN 63 ML/MIN (>=60); GFR NON AFRICAN AMERICAN 54 ML/MIN (>=60); GLUCOSE, SERUM 174 MG/DL (60-99); PHOSPHORUS, SERUM 2.2 MG/DL (2.5-4.5); POTASSIUM, SERUM 3.9 MMOL/L (3.5-5.3); SODIUM, SERUM 143 MMOL/L (135-148)
[2016-06-14 05:07] LABS: BASOPHILS 0.2 %; BASOPHILS ABSOLUTE 0.02 10/3/uL (0.0-0.16); EOSINOPHILS 0.1 %; EOSINOPHILS ABSOLUTE 0.01 10/3/uL (0.0-0.53); HEMATOCRIT 36.8 % (36.0-48.0); HEMOGLOBIN 12.4 g/dL (12.0-16.0); IMMATURE GRANULOCYTES 0.4 %; IMMATURE GRANULOCYTES ABSOLUTE 0.04 10/3/uL (0.0-0.11); LYMPHOCYTES 12.9 %; LYMPHOCYTES ABSOLUTE 1.15 10/3/uL (0.67-4.30); MEAN CORPUS HGB CONC 33.7 g/dL (32.0-36.0); MEAN CORPUSCULAR HEMOGLOB 26.3 pg (26.0-34.0); MEAN CORPUSCULAR VOLUME 78.1 fL (80-100); MEAN PLATELET VOLUME 10.1 fL (9.2-13.0); MONOCYTES 9.5 %; MONOCYTES ABSOLUTE 0.85 10/3/uL (0.21-1.20); NEUTROPHILS 76.9 %; NEUTROPHILS ABSOLUTE 6.87 10/3/uL (2.02-8.40); PLATELET COUNT 288 10/3/uL (150-400); RBC DISTRIBUTION WIDTH 15.7 % (12.0-16.0); RED CELL COUNT 4.71 10/6/uL (4.0-5.6); WHITE BLOOD CELLS 8.9 10/3/uL (4.5-10.5)
[2016-06-14 05:11] LABS: MANUAL DIFF NO %
[2016-06-14 05:13] LABS: BUN (BLOOD UREA NITROGEN) 9 MG/DL (6-23); CHLORIDE, SERUM 108 MMOL/L (96-112); CREATININE 1.16 MG/DL (0.55-1.02); GFR AFRICAN AMERICAN 61 ML/MIN (>=60); GFR NON AFRICAN AMERICAN 52 ML/MIN (>=60); POTASSIUM, SERUM 4.1 MMOL/L (3.5-5.3); SODIUM, SERUM 142 MMOL/L (135-148)
[2016-06-14 05:22] LABS: CALCIUM, SERUM 7.6 MG/DL (8.5-10.4); CO2 (CARBON DIOXIDE) 24 MMOL/L (24-34); GLUCOSE, SERUM 127 MG/DL (60-99); PHOSPHORUS, SERUM 3.4 MG/DL (2.5-4.5)
[2016-06-15 06:46] LABS: BUN (BLOOD UREA NITROGEN) 7 MG/DL (6-23); CALCIUM, SERUM 8.2 MG/DL (8.5-10.4); CHLORIDE, SERUM 106 MMOL/L (96-112); CO2 (CARBON DIOXIDE) 30 MMOL/L (24-34); CREATININE 1.15 MG/DL (0.55-1.02); GFR AFRICAN AMERICAN 61 ML/MIN (>=60); GFR NON AFRICAN AMERICAN 53 ML/MIN (>=60); GLUCOSE, SERUM 102 MG/DL (60-99); POTASSIUM, SERUM 3.7 MMOL/L (3.5-5.3); SODIUM, SERUM 143 MMOL/L (135-148)
[2016-06-15 07:00] LABS: BASOPHILS 0.2 %; BASOPHILS ABSOLUTE 0.02 10/3/uL (0.0-0.16); EOSINOPHILS ABSOLUTE 0.26 10/3/uL (0.0-0.53); HEMOGLOBIN 10.8 g/dL (12.0-16.0); IMMATURE GRANULOCYTES 0.8 %; IMMATURE GRANULOCYTES ABSOLUTE 0.07 10/3/uL (0.0-0.11); LYMPHOCYTES 14.5 %; LYMPHOCYTES ABSOLUTE 1.24 10/3/uL (0.67-4.30); MEAN CORPUS HGB CONC 33.1 g/dL (32.0-36.0); MEAN CORPUSCULAR VOLUME 78.6 fL (80-100); MEAN PLATELET VOLUME 9.9 fL (9.2-13.0); MONOCYTES 14.8 %; MONOCYTES ABSOLUTE 1.26 10/3/uL (0.21-1.20); NEUTROPHILS 66.7 %; NEUTROPHILS ABSOLUTE 5.68 10/3/uL (2.02-8.40); PLATELET COUNT 247 10/3/uL (150-400); RBC DISTRIBUTION WIDTH 15.7 % (12.0-16.0); RED CELL COUNT 4.15 10/6/uL (4.0-5.6); WHITE BLOOD CELLS 8.5 10/3/uL (4.5-10.5)
[2016-06-15 07:20] LABS: HEMATOCRIT 32.6 % (36.0-48.0); MANUAL DIFF NO %
[2016-06-15 07:26] LABS: PLATELET ESTIMATE ADQ (ADEQUATE); RBC MORPHOLOGY NORM (NORMAL)
[2016-06-16 07:00] LABS: BASOPHILS 0.1 %; BASOPHILS ABSOLUTE 0.01 10/3/uL (0.0-0.16); EOSINOPHILS ABSOLUTE 0.35 10/3/uL (0.0-0.53); HEMATOCRIT 31.6 % (36.0-48.0); HEMOGLOBIN 10.6 g/dL (12.0-16.0); IMMATURE GRANULOCYTES ABSOLUTE 0.09 10/3/uL (0.0-0.11); LYMPHOCYTES 15.8 %; MEAN CORPUS HGB CONC 33.5 g/dL (32.0-36.0); MEAN CORPUSCULAR VOLUME 77.6 fL (80-100); MEAN PLATELET VOLUME 9.5 fL (9.2-13.0); MONOCYTES ABSOLUTE 1.15 10/3/uL (0.21-1.20); NEUTROPHILS 66.1 %; NEUTROPHILS ABSOLUTE 5.85 10/3/uL (2.02-8.40); PLATELET COUNT 227 10/3/uL (150-400); RBC DISTRIBUTION WIDTH 15.8 % (12.0-16.0); RED CELL COUNT 4.07 10/6/uL (4.0-5.6); WHITE BLOOD CELLS 8.9 10/3/uL (4.5-10.5)
[2016-06-16 07:01] LABS: MANUAL DIFF NO %
[2016-06-16 07:10] LABS: A/G RATIO 0.6 (0.7-1.9); ALBUMIN 2.2 G/DL (3.5-5.0); ALKALINE PHOSPHATASE 88 U/L (45-117); BUN (BLOOD UREA NITROGEN) 5 MG/DL (6-23); CALCIUM, SERUM 8.1 MG/DL (8.5-10.4); CHLORIDE, SERUM 107 MMOL/L (96-112); CO2 (CARBON DIOXIDE) 29 MMOL/L (24-34); CREATININE 0.97 MG/DL (0.55-1.02); GFR AFRICAN AMERICAN 75 ML/MIN (>=60); GFR NON AFRICAN AMERICAN 65 ML/MIN (>=60); GLOBULIN 3.9 G/DL (2.5-4.1); GLUCOSE, SERUM 150 MG/DL (60-99); POTASSIUM, SERUM 3.7 MMOL/L (3.5-5.3); SGOT(AST) 20 U/L (5-40); SGPT(ALT) 17 U/L (5-65); SODIUM, SERUM 143 MMOL/L (135-148); TOTAL BILIRUBIN 0.4 MG/DL (0-1.2); TOTAL PROTEIN 6.1 G/DL (6.0-8.5)
[2016-06-18 05:04] LABS: BUN (BLOOD UREA NITROGEN) 3 MG/DL (6-23); CALCIUM, SERUM 8.2 MG/DL (8.5-10.4); CHLORIDE, SERUM 107 MMOL/L (96-112); CO2 (CARBON DIOXIDE) 27 MMOL/L (24-34); CREATININE 0.85 MG/DL (0.55-1.02); GFR AFRICAN AMERICAN 88 ML/MIN (>=60); GFR NON AFRICAN AMERICAN 76 ML/MIN (>=60); GLUCOSE, SERUM 99 MG/DL (60-99); POTASSIUM, SERUM 3.2 MMOL/L (3.5-5.3); SODIUM, SERUM 145 MMOL/L (135-148)
[2016-06-19 06:38] LABS: BUN (BLOOD UREA NITROGEN) 4 MG/DL (6-23); CALCIUM, SERUM 8.2 MG/DL (8.5-10.4); CHLORIDE, SERUM 111 MMOL/L (96-112); CO2 (CARBON DIOXIDE) 26 MMOL/L (24-34); GFR AFRICAN AMERICAN 82 ML/MIN (>=60); GFR NON AFRICAN AMERICAN 71 ML/MIN (>=60); GLUCOSE, SERUM 114 MG/DL (60-99); POTASSIUM, SERUM 3.7 MMOL/L (3.5-5.3); SODIUM, SERUM 145 MMOL/L (135-148)
[2016-06-19] MEDS ORDERED: APRES25 PO (09:58)
[2016-06-19] MEDS ORDERED: PROTONIX PO (09:59)
[2016-12-09] MEDS ORDERED: COREG3 PO (09:43)
[2016-12-09] MEDS ORDERED: MAXZIDE PO (09:44)
== END 2016-06-19 12:46 | disposition home or self-care (01) | DRG 327 ==
LOC: ER 21:41 → 5SO 23:59
PROVIDERS: Hospitalist; Internal Medicine Pulmonary Disease; Nurse Practitioner Acute Care; Nurse Practitioner Family; Specialist; Surgery
PROC: 0DTJ0ZZ Resection of Appendix, Open Approach (ICD-10-PCS; 2016-06-13)
PROC: 0DN80ZZ Release Small Intestine, Open Approach (ICD-10-PCS; principal; 2016-06-13 14:45)
PROC: 0DH60UZ Insertion of Feeding Device into Stomach, Open Approach (ICD-10-PCS; 2016-06-13 14:45)
DX: K56.5 Intestinal adhesions [bands] with obstruction (postinfection) (principal); N17.9 Acute kidney failure, unspecified; Z68.42 Body mass index [BMI] 45.0-49.9, adult; I10 Essential (primary) hypertension; K44.9 Diaphragmatic hernia without obstruction or gangrene; Z90.710 Acquired absence of both cervix and uterus; Z90.49 Acquired absence of other specified parts of digestive tract; E86.0 Dehydration; Z98.84 Bariatric surgery status; E87.6 Hypokalemia; E66.01 Morbid (severe) obesity due to excess calories
CPT/HCPCS: 71010; 74000; 74176; 74240; 74250; 80048; 80053; 81001; 83036; 83605; 83690; 83735; 84100; 84132; 85025; 87040; 88304; 93005; 96374; 99284; 99285; A9270-GY; C9113; J0330; J0360; J0690; J1170; J1980; J2250; J2405; J2550; J2710; J3010; P9045; P9047